=== PATIENT | female | born 1970 | race Hispanic/Latino ===

== ENCOUNTER → 2019-09-10 | Outpatient (CLI) | payer OTHER | END | disposition home or self-care (01) | LOC: RAH 10:56 | PROVIDERS: ATTEND Internal Medicine Cardiovascular Disease | DX: Z13.6 Encounter for screening for cardiovascular disorders (principal) | CPT/HCPCS: 75571 ==

== ENCOUNTER 2022-02-08 16:26 | Emergency (ER) | payer BC, OTHER ==
[~2022-02-08] VITALS: Ht 167.6 cm; Wt 79.4 kg
[2022-02-08] MEDS ORDERED: ACET-66 PO (18:04)
[2022-02-08 18:31] VITALS: BP 122/76
== END 2022-02-08 18:33 | disposition home or self-care (01) ==
LOC: EDH 16:26
DX: S09.90XA Unspecified injury of head, initial encounter (principal); M54.2 Cervicalgia; M54.6 Pain in thoracic spine; I10 Essential (primary) hypertension; W18.39XA Other fall on same level, initial encounter; Y93.89 Activity, other specified; Y92.89 Other specified places as the place of occurrence of the external cause; Y99.8 Other external cause status
CPT/HCPCS: 70450; 72125